=== PATIENT | female | born 1950 | race Caucasian/White ===

== ENCOUNTER → 2016-08-25 | Outpatient (CLI) | payer OTHER ==
[~2016-08-25] VITALS: Ht 161.3 cm; Wt 81.4 kg
[~2016-08-25] MED LIST: AMARYL2 MG PO; AMARYL4 MG PO; BIOTIN10000 MC1 PO; CO Q-1010 M1 PO; COLACE 100100 MG/CAP PO; FLINTSTONES COM1 CT1 PO; LEVOTHYROXINE0.15 MG PO; LORTAB 5/500 501 TAB PO; METROGEL0.75% TP; MEVACOR 20M20 MG/TAB PO; NATURE'S BLE1000 MCG PO; STATIN DRUG; SYNTHROID0.05 MG/TA PO; TRULICITY0.75 MG/0. SQ; VITAMIN B12 1541 TAB SL; VITAMIND3 5000 PO; ZADITOR 5 ML5 ML OP; ZOCOR 20MG20 MG; ZOCOR 20MG20 MG PO; ZYRTEC10 M1 PO; [UNRECOGNIZED DRUG - OTHER] PO
[2016-08-25 16:18] VITALS: BP 129/71; PULSE 68
[2016-08-25 16:37] VITALS: BP 129/71; PULSE 68
== END ==
LOC: LIGHT 14:21
DX: Z98.84 Bariatric surgery status (principal); E78.4 Other hyperlipidemia; Z68.31 Body mass index [BMI] 31.0-31.9, adult

== ENCOUNTER → 2016-10-06 | Outpatient (CLI) | payer OTHER ==
[~2016-10-06] VITALS: Ht 161.3 cm; Wt 78.7 kg
[2016-10-06 15:32] VITALS: BP 127/74; PULSE 74
[2016-10-06 16:00] VITALS: BP 127/74; PULSE 74
== END ==
LOC: LIGHT 09:33
DX: Z98.84 Bariatric surgery status (principal); E78.4 Other hyperlipidemia; E11.65 Type 2 diabetes mellitus with hyperglycemia; E66.09 Other obesity due to excess calories; Z68.30 Body mass index [BMI] 30.0-30.9, adult

== ENCOUNTER → 2017-01-26 | Outpatient (CLI) | payer OTHER ==
[~2017-01-26] VITALS: Ht 161.3 cm; Wt 75.5 kg
[2017-01-26 16:31] VITALS: BP 120/83; PULSE 75
== END ==
LOC: LIGHT 11:44
DX: E11.65 Type 2 diabetes mellitus with hyperglycemia (principal); E78.5 Hyperlipidemia, unspecified; E66.9 Obesity, unspecified; Z68.29 Body mass index [BMI] 29.0-29.9, adult; Z71.3 Dietary counseling and surveillance; E03.9 Hypothyroidism, unspecified

== ENCOUNTER → 2017-08-24 | Outpatient (CLI) | payer OTHER ==
[~2017-08-24] VITALS: Ht 161.3 cm; Wt 76.7 kg
[~2017-08-24] MED LIST changes: -SYNTHROID0.05 MG/TA PO; +SYNTHROID0.1 MG/TAB PO
[2017-08-24 15:25] VITALS: BP 120/70; PULSE 64
== END ==
LOC: LIGHT 09:32
DX: E11.65 Type 2 diabetes mellitus with hyperglycemia (principal); E78.5 Hyperlipidemia, unspecified; E66.3 Overweight; Z68.29 Body mass index [BMI] 29.0-29.9, adult; Z71.3 Dietary counseling and surveillance; E03.9 Hypothyroidism, unspecified
CPT/HCPCS: G0463

== ENCOUNTER → 2017-08-25 | Outpatient (CLI) | payer OTHER | LOC: MC.RAD 07:10 | DX: Z12.31 Encounter for screening mammogram for malignant neoplasm of breast (principal) ==

== ENCOUNTER → 2021-07-01 | Outpatient (CLI) | payer OTHER ==
[2021-07-01 13:48] LABS: BILIRUBIN,TOTAL 0.4 mg/dL (0.2-1.2); CALCIUM 10.2 mg/dL (8.4-10.2); CREATININE, serum 0.77 mg/dL (0.57-1.11); POTASSIUM 4.4 mmol/L (3.5-4.5); TOTAL PROTEIN 7.2 gm/dL (6.2-8.1)
== END ==
LOC: COL.LAB 12:32
DX: E11.69 Type 2 diabetes mellitus with other specified complication (principal)